=== PATIENT | female | born 1985 | race Two or more races ===

== ENCOUNTER 2019-06-01 16:54 | Emergency (ER) | payer MEDICAID, OTHER ==
[~2019-06-01] VITALS: Ht 170.2 cm; Wt 52.6 kg
[2019-06-01 17:11] VITALS: BP 117/66
== END 2019-06-01 20:06 | disposition left against medical advice (07) ==
LOC: ER 17:04
DX: M54.2 Cervicalgia (principal); R51 Headache; Z53.21 Procedure and treatment not carried out due to patient leaving prior to being seen by health care provider; Y08.89XA Assault by other specified means, initial encounter
CPT/HCPCS: 70450; 72125